=== PATIENT | female | born 1990 | race African-American/Black ===

== ENCOUNTER 2017-03-18 19:51 | Emergency (ER) | payer SELFPAY ==
[2017-03-18 21:54] LABS: APPEARANCE,URINE CLEAR; BILIRUBIN,URINE NEGATIVE (NEGATIVE); GLUCOSE, URINE NEGATIVE (NEGATIVE); KETONES,URINE NEGATIVE (NEGATIVE); LEUKOCYTE ESTERASE,URINE TRACE (NEGATIVE); NITRITE,URINE NEGATIVE (NEGATIVE); PROTEIN,URINE NEGATIVE (NEGATIVE); URINE SPECIFIC GRAVITY 1.012; UROBILINOGEN,URINE NEGATIVE mg/dL (<2.0)
[2017-03-18] MEDS ORDERED: METRONIDAZOLE 500 MG TABLET PO ONE (22:28)
--- NOTE | 2017-03-18 22:31 | ER Document Report ---
ED General - General Chief Complaint: Vaginal Discharge Stated Complaint: VAGINAL ISSUES Time Seen by Provider: 03/18/17 21:09 Notes: Patient is a 26-year-old female who presents with 1 week of vaginal irritation and itching. Does describe it as a diffuse vaginal burning. Nothing improves or worsens her pain. States she has had similar symptoms in the past and she has had bacterial vaginosis. She is sexually active but denies any concerns for sexually transmitted infections. She is 3 days late for her menstrual period. She has not seen a primary care doctor regarding today's concerns. Nothing improves or worsens her symptoms. She denies any dysuria or focal abdominal pain. TRAVEL OUTSIDE OF THE [place] IN LAST 30 DAYS: No Past Medical History - General Information source: Patient - Social History Smoking Status: Never Smoker Chew tobacco use (# tins/day): No Frequency of alcohol use: Social Drug Abuse: None Lives with: Friend Family History: Reviewed & Not Pertinent Patient has suicidal ideation: No Patient has homicidal ideation: No Renal/ Medical History: Denies: Hx Peritoneal Dialysis Surgical Hx: Negative Review of Systems - Review of Systems Notes: Constitutional: Negative for fever. HENT: Negative for sore throat. Eyes: Negative for visual changes. Cardiovascular: Negative for chest pain. Respiratory: Negative for shortness of breath. Gastrointestinal: Negative for abdominal pain, vomiting or diarrhea. Genitourinary: Negative for dysuria. Positive for vaginal irritation Musculoskeletal: Negative for back pain. Skin: Negative for rash. Neurological: Negative for headaches, weakness or numbness. 10 point ROS negative except as marked above and in HPI. Physical Exam - Vital signs Vitals: Temp Pulse Resp BP Pulse Ox 99.0 F 84 18 132/76 H 98 03/18/17 20:18 03/18/17 20:18 03/18/17 20:18 03/18/17 20:18 03/18/17 20:18 Interpretation: Normal Notes: PHYSICAL EXAMINATION: GENERAL: Well-appearing, well-nourished and in no acute distress. HEAD: Atraumatic, normocephalic. EYES: Pupils equal round and reactive to light, extraocular movements intact, sclera anicteric, conjunctiva are normal. ENT: nares patent, oropharynx clear without exudates. Moist mucous membranes. NECK: Normal range of motion, supple without lymphadenopathy LUNGS: Breath sounds clear to auscultation bilaterally and equal. No wheezes rales or rhonchi. HEART: Regular rate and rhythm without murmurs ABDOMEN: Soft, nontender, normoactive bowel sounds. No guarding, no rebound. No masses appreciated. : moderate amount of white vaginal discharge, no cervical motion tenderness or adnexal tenderness EXTREMITIES: Normal range of motion, no pitting or edema. No cyanosis. NEUROLOGICAL: No focal neurological deficits. Moves all extremities spontaneously and on command. PSYCH: Normal mood, normal affect. SKIN: Warm, Dry, normal turgor, no rashes or lesions noted. Course - Re-evaluation Re-evalutation: 03/18/17 22:28 Presentation is most consistent with bacterial vaginosis. Examination is without evidence of cervical motion tenderness, adnexal tenderness, no abdominal tenderness. Do not suspect tubo-ovarian abscess, gonorrhea, chlamydia , or pelvic inflammatory disease. Vitals within normal limits. Wet mount does demonstrate bacteria and white blood cells. Patient will be started on metronidazole. At this time will discharge with return precautions and follow- up recommendations. Verbal discharge instructions given a the bedside and opportunity for questions given. Medication warnings reviewed. Patient is in agreement with this plan and has verbalized understanding of return precautions and the need for primary care follow-up in the next 24-72 hours. - Vital Signs Vital signs: Temp Pulse Resp BP Pulse Ox 98.5 F 83 16 132/85 H 100 03/18/17 22:38 03/18/17 22:38 03/18/17 22:38 03/18/17 22:38 03/18/17 22:38 - Laboratory Laboratory results interpreted by me: 03/18/17 21:25 Ur Leukocyte Esterase TRACE H Discharge - Discharge Clinical Impression: Bacterial vaginosis Condition: Good Disposition: HOME, SELF-CARE Additional Instructions: You have an overgrowth of natural vaginal bacteria, called bacterial vaginosis. You are being treated with an antibiotic called metronidazole. Do not drink alcohol while taking this medication. Complete all of the antibiotic even if your symptoms have resolved. Return for abdominal pain, vomiting, fever of greater than 101F, or any other symptoms that are worrisome to you. Please follow-up with your [facility]NA[facility] or primary care doctor as needed. Prescriptions: Metronidazole 500 mg PO BID #14 tablet
[2017-03-18 22:41] VITALS: BP 132/85
[2017-03-18 23:45] LABS: CHLAM PCR NOT DETECTED (NOT DETECT)
== END 2017-03-18 22:40 | disposition home or self-care (01) ==
LOC: ER 19:51
DX: N76.0 Acute vaginitis (principal)
CPT/HCPCS: 81001; 81025; 87210; 87491; 87591; 99283

== ENCOUNTER 2019-01-05 15:42 | Emergency (ER) | payer MEDICAID ==
[2019-01-05] MEDS ORDERED: DIPH/PERTUSS(ACELL)/TETANUS VAC/PF 0.5 ML SYR (>=10YO) IM ONE (16:11)
[2019-01-05] MEDS ORDERED: LIDOCAINE 1% INJ-PF (10 MG/ML) 30 ML SDV INJ ONE (16:11)
--- NOTE | 2019-01-05 16:19 | ER Document Report ---
ED General - General Chief Complaint: Laceration Stated Complaint: LACERATION Time Seen by Provider: 01/05/19 16:08 Mode of Arrival: Ambulatory Information source: Patient TRAVEL OUTSIDE OF THE [place] IN LAST 30 DAYS: No - HPI Patient complains to provider of: Right thigh laceration Onset: Other - 11 PM last night Onset/Duration: Sudden Severity: Moderate Pain Level: 2 Associated symptoms: None Exacerbated by: Denies Relieved by: Denies Similar symptoms previously: No Recently seen / treated by doctor: No Notes: 28-year-old -[place] female coming in today with a 3 cm laceration to her right thigh. States she is putting on her jeans last night while she was holding and open pocketknife and lacerated her right thigh. Last tetanus unknown. - Related Data Allergies/Adverse Reactions: No Known Drug Allergies Allergy (Verified 01/05/19 16:20) Past Medical History - General Information source: Patient - Social History Smoking Status: Current Some Day Smoker Frequency of alcohol use: Occasional Family History: Reviewed & Not Pertinent Patient has suicidal ideation: No Patient has homicidal ideation: No Renal/ Medical History: Denies: Hx Peritoneal Dialysis Review of Systems - Review of Systems Notes: Constitutional: No fevers. No chills. EENT: No eye redness. No eye pain. No ear pain. No sore throat. Cardiovascular: No chest pain. No palpitations. Respiratory: No cough. No shortness of breath. No respiratory distress. Gastrointestinal: No abdominal pain. No nausea, vomiting, or diarrhea. Genitourinary: Atraumatic. No lesions. No pain. No discharge. Musculoskeletal: Atraumatic. No swelling. No deformities. Skin: Laceration right thigh Lymphatic: No swollen lymph nodes. Physical Exam - Vital signs Vitals: Temp Pulse Resp BP Pulse Ox 98.0 F 88 18 132/86 H 99 01/05/19 15:54 01/05/19 15:54 01/05/19 15:54 01/05/19 15:54 01/05/19 15:54 - Notes Notes: General: Well-developed, well-nourished. In no acute distress. Non-toxic appearing. Cardiac: Well-perfused. Regular rate and rhythm. No murmurs, rubs, or gallops. Pulmonary: No respiratory distress. No cyanosis. Bilateral lung fiels are clear to auscultation. Abdominal: Non-distended. Non-rigid. Bowels sounds are present in all four quadrants. No guarding or rebound. HEENT: Head is atraumatic. Conjunctivae not reddened. No tearing. PERRL. EOMI. Orbits atraumatic. No periorbital swelling or erythema. Oropharynx is without erythema, swelling, or exudates. Neck: Supple. No adenopathy. No meningismus. Dermatologic: Warm with good turgor. No rash. Atraumatic. Chest: Atraumatic. No chest wall tenderness to palpation. Musculoskeletal: There is a 3 cm laceration to the right lateral thigh. No active bleeding. Genitourinary: Examination deferred Neurologic: No gross neurologic deficits. Psychiatric: Normal mood. Course - Re-evaluation Re-evalutation: 01/05/19 16:17 Update Tdap. Clean out wound copiously. Loosely approximate. - Vital Signs Vital signs: Temp Pulse Resp BP Pulse Ox 98.0 F 88 18 132/86 H 99 01/05/19 15:54 01/05/19 15:54 01/05/19 15:54 01/05/19 15:54 01/05/19 15:54 Procedures - Laceration/Wound Repair right thigh Time completed: 16:52 Wound length (cm): 3 Wound's Depth, Shape: Linear Laceration pre-procedure: Sterile PPE donned, Sterile drapes applied, Shur-Clens applied Anesthetic type: 1% Lidocaine Volume Anesthetic (mLs): 8 Wound explored: Clean Wound Repaired With: [facility] Number of Sutures: 3 Layer Closure?: No Post-procedure wound care: Sterile dressing applied Post-procedure NV exam normal: Yes Complications: No Notes: 01/05/19 16:52 The wound was loosely approximated leaving plenty of space in between the beba for drainage of the wound given that it was over 12 hours old. Discharge - Discharge Clinical Impression: Thigh laceration Qualifiers: Encounter type: initial encounter Laterality: right Qualified Code(s): S71.111A - Laceration without foreign body, right thigh, initial encounter Condition: Good Disposition: HOME, SELF-CARE Instructions: Antibiotic Ointment Protection ([facility]), Laceration Care ([facility]), Soap Cleansing ([facility]), Prophylactic Antibiotic ([facility]), Tetanus Immunization Given ([facility]) Additional Instructions: [facility] can come out in 10 days. Please see the instructions for wound care. Prophylactic antibiotics for 5 days. Tylenol and Motrin as needed for pain Prescriptions: Cephalexin Monohydrate [Keflex 500 mg Capsule] 500 mg PO TID 5 Days #15 capsule Referrals: [facility] [Provider Group] - Follow up as needed
[2019-01-05 17:12] VITALS: BP 123/89
== END 2019-01-05 17:18 | disposition home or self-care (01) ==
LOC: ER 15:42
DX: S71.111A Laceration without foreign body, right thigh, initial encounter (principal); W26.0XXA Contact with knife, initial encounter; Y93.89 Activity, other specified; F17.200 Nicotine dependence, unspecified, uncomplicated; Z23 Encounter for immunization
CPT/HCPCS: 99282; 90471; 90715; 12002; J3490

== ENCOUNTER 2019-01-22 11:35 | Emergency (ER) | payer MEDICAID ==
[2019-01-22 11:40] VITALS: BP 148/89
--- NOTE | 2019-01-22 12:36 | ER Document Report ---
HPI - HPI Patient complains to provider of: staple removal Time Seen by Provider: 01/22/19 12:30 Onset: Other - 3 weeks ago Quality of pain: No pain Pain Level: Denies Context: Patient presents emergency department with request to remove beba. Really she reports 3 weeks ago she cut herself with her own pocket knife when she was going to bathroom. She reports her top staple got caught on something and pulled apart. She denies fever vomiting diarrhea. Denies pain. Site looks good no signs of infection. Associated Symptoms: None Exacerbated by: Denies Relieved by: Denies Similar symptoms previously: Yes Recently seen / treated by doctor: Yes - CONSTITUTIONAL Constitutional: DENIES: Fever, Chills - REPRODUCTIVE Reproductive: DENIES: : Past Medical History - General Information source: Patient Last Menstrual Period: december - Social History Smoking Status: Current Some Day Smoker Cigarette use (# per day): Yes Frequency of alcohol use: Occasional Drug Abuse: None Family History: Reviewed & Not Pertinent Patient has suicidal ideation: No Patient has homicidal ideation: No - Medical History Medical History: Negative Renal/ Medical History: Denies: Hx Peritoneal Dialysis Surgical Hx: Negative Vertical Provider Document - CONSTITUTIONAL Agree With Documented VS: Yes Exam Limitations: No Limitations General Appearance: WD/WN, Cachetic - INFECTION CONTROL TRAVEL OUTSIDE OF THE [place] IN LAST 30 DAYS: No - HEENT HEENT: Atraumatic, Normocephalic - NECK Neck: Supple - RESPIRATORY Respiratory: No Respiratory Distress - CARDIOVASCULAR Cardiovascular: Regular Rate - MUSCULOSKELETAL/EXTREMETIES Musculoskeletal/Extremeties: MAEW, FROM, Non-Tender - NEURO Level of Consciousness: Awake, Alert, Appropriate Motor/Sensory: No Motor Deficit - DERM Integumentary: Warm, Dry Adult Front & Back Diagram: 1 - 3 beba noted, site benign, no erythema no swelling no warmth no discharge, one staple almost out. Course - Re-evaluation Re-evalutation: 01/22/19 12:36 Patient instructed to keep the area clean and watch for signs of infection she verbalized understanding. Dictation of this chart was performed using voice recognition software; therefore, there may be some unintended grammatical errors. - Vital Signs Vital signs: Temp Pulse Resp BP Pulse Ox 98.3 F 89 18 148/89 H 99 01/22/19 11:37 01/22/19 11:37 01/22/19 11:37 01/22/19 11:37 01/22/19 11:37 Discharge - Discharge Clinical Impression: Removal of staple Condition: Stable Disposition: HOME, SELF-CARE Instructions: Staple Removal ([facility]) Additional Instructions: *You have been treated for removal of beba *Monitor the site for signs of infection such as pain, redness, swelling, warmth *Keep the area clean *Follow up with a primary care provider within 1 week for recheck *Return to ED for signs of infection, worsening condition, changes, needs Monitor your blood pressure. Your blood pressure was elevated today. This may be because you were anxious, in pain or because you need medication. It is important to follow up with your primary care provider for full evaluation. Forms: Elevated Blood Pressure
== END 2019-01-22 12:41 | disposition home or self-care (01) ==
LOC: ER 11:35
DX: S81.811D Laceration without foreign body, right lower leg, subsequent encounter (principal); W26.0XXD Contact with knife, subsequent encounter; F17.210 Nicotine dependence, cigarettes, uncomplicated

== ENCOUNTER 2020-09-09 14:41 | Emergency (ER) | payer MEDICAID ==
[2020-09-09 14:58] VITALS: BP 117/85
== END 2020-09-09 16:41 | disposition left against medical advice (07) ==
LOC: ER 14:41
DX: Z53.21 Procedure and treatment not carried out due to patient leaving prior to being seen by health care provider (principal)